=== PATIENT | female | born 1955 | race Caucasian/White ===

== ENCOUNTER 2024-05-13 09:27 | Inpatient (IN) | payer MEDICARE, OTHER ==
[2024-05-13] MEDS ORDERED: LIDOCAINE 2%-EPI 1:100,000 30 ML VIAL ONE (13:30)
[2024-05-13] MEDS ORDERED: VANCOMYCIN 1 GM VIAL ONE (13:31)
[2024-05-13] MEDS ORDERED: dexaMETHasone SOD PHOSPHATE 2 ML ONE (13:31)
[2024-05-13] MEDS ORDERED: OXYMETAZOLINE HCL NASAL SPRAY 30 ML BOTTLE NS ONE (13:31)
[2024-05-13] MEDS ORDERED: ACETAMINOPHEN 325 MG TABLET PO PRN (17:00)
[2024-05-13] MEDS ORDERED: IV NS 0.9% 1,000 ML IV PRN (17:00)
[2024-05-13] MEDS ORDERED: HYDROMORPHONE 1 MG/1 ML DISP.SYRIN IV PRN (17:00)
[2024-05-13] MEDS ORDERED: ONDANSETRON HCL/PF 4 MG/2 ML VIAL IVP PRN (17:00)
== END 2024-05-13 17:00 | disposition home or self-care (01) | DRG 517 ==
LOC: DS 09:27 → MED 16:18
PROVIDERS: ADMIT Dentist Oral and Maxillofacial Surgery; ATTEND Dentist Oral and Maxillofacial Surgery
PROC: 0NHT04Z Insertion of Internal Fixation Device into Right Mandible, Open Approach (ICD-10-PCS; principal; 2024-05-13)
PROC: 0NBT0ZZ Excision of Right Mandible, Open Approach (ICD-10-PCS; 2024-05-13)
PROC: 0NBV0ZZ Excision of Left Mandible, Open Approach (ICD-10-PCS; 2024-05-13)
PROC: 0NHV04Z Insertion of Internal Fixation Device into Left Mandible, Open Approach (ICD-10-PCS; 2024-05-13)
DX: S02.401K Maxillary fracture, unspecified side, subsequent encounter for fracture with nonunion (principal); X58.XXXD Exposure to other specified factors, subsequent encounter; M27.2 Inflammatory conditions of jaws; M60.9 Myositis, unspecified; K12.30 Oral mucositis (ulcerative), unspecified; D16.5 Benign neoplasm of lower jaw bone
CPT/HCPCS: C1713; G0378; J0330; J1100; J1200; J2704; J3370; J3490